=== PATIENT | female | born 1965 | race Caucasian/White ===

== ENCOUNTER 2018-02-19 14:35 | Emergency (ER) | payer BC, OTHER ==
[2018-02-19 14:41] VITALS: RESP 18
--- NOTE | 2018-02-19 15:37 | ED ---
General Adult HPI - General Chief complaint: Extremity Injury, Lower Stated complaint: bilateral ankle pain Time Seen by Provider: 02/19/18 14:48 Source: patient, RN notes reviewed, old records reviewed Mode of arrival: wheelchair Limitations: no limitations - History of Present Illness Initial comments: This is a 53-year-old female the ER for evaluation. To the ER for this patient presents ER for evaluation regarding ankle pain bilateral ankle pain. Patient has history of trauma, patient was running option of course today she tripped over an obstacle one of her foot got caught in a loop also some kind and the other foot landed on the ground. Bilateral tympanic, she is able to bear weight but currently is having lower extremity edema swelling. Patient took Motrin this morning mild improvement but no significant help - Related Data Home Medications Medication Instructions Recorded Confirmed Atorvastatin [Lipitor] 20 mg PO HS 04/07/16 04/10/16 Citalopram Hydrobromide 40 mg PO DAILY 04/07/16 04/10/16 [Citalopram HBr] Dapagliflozin Propanediol [Farxiga] 10 mg PO DAILY 04/07/16 04/10/16 LORazepam [Ativan] 1 mg PO DAILY 04/07/16 04/10/16 Levothyroxine Sodium [Synthroid] 137 mcg PO DAILY 04/07/16 04/10/16 Meloxicam 15 mg PO DAILY 04/07/16 04/10/16 Phentermine HCl [Adipex-P] 37.5 mg PO QAM 04/07/16 04/10/16 buPROPion HCL [Wellbutrin XL] 300 mg PO DAILY 04/07/16 04/10/16 Previous Rx's Medication Instructions Recorded Cyclobenzaprine [Flexeril] 10 mg PO TID #20 tablet 07/25/14 Acetaminophen with Codeine 1 tab PO Q4H PRN #20 tab 02/19/18 [Tylenol w/codeine #3] Allergies Allergy/AdvReac Type Severity Reaction Status Date / Time No Known Allergies Allergy Verified 02/19/18 14:38 Review of Systems ROS Statement: Those systems with pertinent positive or pertinent negative responses have been documented in the HPI. ROS Other: All systems not noted in ROS Statement are negative. Past Medical History Past Medical History: Diabetes Mellitus, Liver Disease, Thyroid Disorder Additional Past Medical History / Comment(s): elevated liver enzymes, neuropathy History of Any Multi-Drug Resistant Organisms: None Reported Past Surgical History: Appendectomy, Hysterectomy, Orthopedic Surgery Additional Past Surgical History / Comment(s): ovarian cyst; laparoscopies Past Anesthesia/Blood Transfusion Reactions: No Reported Reaction Past Psychological History: Depression Smoking Status: Never smoker Past Alcohol Use History: None Reported Past Drug Use History: None Reported - Past Family History Mother Family Medical History: No Reported History General Exam Limitations: no limitations General appearance: alert, in no apparent distress Head exam: Present: atraumatic, normocephalic, normal inspection Eye exam: Present: normal appearance, PERRL, EOMI. Absent: scleral icterus, conjunctival injection, periorbital swelling ENT exam: Present: normal exam, mucous membranes moist Neck exam: Present: normal inspection. Absent: tenderness, meningismus, lymphadenopathy Respiratory exam: Present: normal lung sounds bilaterally. Absent: respiratory distress, wheezes, rales, rhonchi, stridor Cardiovascular Exam: Present: regular rate, normal rhythm, normal heart sounds. Absent: systolic murmur, diastolic murmur, rubs, gallop, clicks GI/Abdominal exam: Present: soft, normal bowel sounds. Absent: distended, tenderness, guarding, rebound, rigid Extremities exam: Present: normal inspection, full ROM, normal capillary refill , other (Right ankle edema left ankle edema, right tibia tenderness). Absent: tenderness, pedal edema, joint swelling, calf tenderness Back exam: Present: normal inspection Neurological exam: Present: alert, oriented X3, CN II-XII intact Psychiatric exam: Present: normal affect, normal mood Skin exam: Present: warm, dry, intact, normal color. Absent: rash Course Vital Signs 02/19/18 14:38 Temperature 98.5 F Pulse Rate 93 Respiratory 18 Rate Blood Pressure 128/87 O2 Sat by Pulse 99 Oximetry Medical Decision Making - Medical Decision Making 33 female the ER status post trip and fall. Patient fell while going over optical course. Bilateral ankle pain right knee pain. X-rays negative for traumatic injury. Patient given an Aircast both ankles, Motrin Tylenol for pain ice tonight. Patient can be discharged home - Radiology Data Radiology results: report reviewed (X-ray bilateral ankles, bilateral tib-fib negative, right knee x-ray negative), image reviewed Disposition Clinical Impression: Right ankle sprain, Left ankle sprain, Fall Disposition: HOME SELF-CARE Condition: Good Instructions: Ankle Sprain (ED) Prescriptions: Acetaminophen with Codeine [Tylenol w/codeine #3] 1 tab PO Q4H PRN #20 tab PRN Reason: Pain Is patient prescribed a controlled substance at d/c from ED?: No Referrals: Cristhian Mcguire MD [Primary Care Provider] - 1-2 days
--- NOTE | 2018-02-19 16:06 | XR ---
EXAMINATION TYPE: XR ankle complete bilateral DATE OF EXAM: 02/19/2018 COMPARISON: NONE HISTORY: Pain and swelling TECHNIQUE: 6 views. 3 views each ankle. FINDINGS: There is an oblique nondisplaced fracture of the distal fibula of the right ankle. There is lateral soft tissue swelling. The left ankle appears intact. There is minimal soft tissue swelling o bobbi the lateral malleolus of the left ankle. There are bilateral plantar calcaneal spurs. IMPRESSION: Acute nondisplaced oblique fracture distal right fibula. Left ankle shows no evidence of fracture.
--- NOTE | 2018-02-19 16:07 | XR ---
EXAMINATION TYPE: XR tibia fibula bilateral DATE OF EXAM: 02/19/2018 COMPARISON: NONE HISTORY: Pain TECHNIQUE: 3 views each tibia and fibula. FINDINGS: There is nondisplaced oblique fracture distal shaft of the right fibula. The left tibia and fibula appear intact. The knee joints appear intact. IMPRESSION: Negative left tibia and fibula exam. Oblique nondisplaced fracture distal shaft of the right fibula.
[2018-02-19] MEDS ORDERED: HYDROcodone/APAP 5-325MG 1 EACH TAB PO STA ×2 (17:02→17:25)
[2018-02-19 17:18] VITALS: BP 171/99; PULSE 77; TEMP 98.2
== END 2018-02-19 17:35 | disposition home or self-care (01) ==
LOC: EC 14:35
DX: S93.401A Sprain of unspecified ligament of right ankle, initial encounter (principal); S93.402A Sprain of unspecified ligament of left ankle, initial encounter; E07.9 Disorder of thyroid, unspecified; F32.9 Major depressive disorder, single episode, unspecified; E11.40 Type 2 diabetes mellitus with diabetic neuropathy, unspecified; Z79.84 Long term (current) use of oral hypoglycemic drugs; Z79.899 Other long term (current) drug therapy; W01.0XXA Fall on same level from slipping, tripping and stumbling without subsequent striking against object, initial encounter; Y93.02 Activity, running
CPT/HCPCS: 99284

== ENCOUNTER → 2018-02-22 | Outpatient (CLI) | payer SELFPAY ==
[2018-02-22 13:07] LABS: Basophils # (A) 0.1 k/uL (0-0.2); Basophils % (A) 0 %; Eosinophils # (A) 0.3 k/uL (0-0.7); Eosinophils % (A) 3 %; HCT 46.5 % (34.0-46.0); HGB 16.2 gm/dL (11.4-16.0); Lymphocytes # (A) 2.1 k/uL (1.0-4.8); Lymphocytes % (A) 20 %; MCH 29.4 pg (25.0-35.0); MCHC 34.8 g/dL (31.0-37.0); MCV 84.7 fL (80.0-100.0); Mean Platelet Volume 8.8; Monocytes # (A) 0.4 k/uL (0-1.0); Monocytes % (A) 4 %; Neutrophils # (A) 7.7 k/uL (1.3-7.7); Neutrophils % (A) 72 %; Platelet Count 164 k/uL (150-450); RBC 5.49 m/uL (3.80-5.40); RDW 13.7 % (11.5-15.5); WBC 10.7 k/uL (3.8-10.6)
[2018-02-22 13:15] LABS: Potassium 4.1 mmol/L (3.5-5.1)
== END | disposition home or self-care (01) ==
LOC: LABPAT 12:06
PROVIDERS: ATTEND Orthopaedic Surgery
DX: Z01.818 Encounter for other preprocedural examination (principal); Z01.812 Encounter for preprocedural laboratory examination; S82.61XD Displaced fracture of lateral malleolus of right fibula, subsequent encounter for closed fracture with routine healing
CPT/HCPCS: 36415; 80051; 85025; 93005

== ENCOUNTER 2018-02-24 05:48 | Observation (INO) | payer OTHER ==
[2018-02-22 17:01] VITALS: BMI 35.5
--- NOTE | 2018-02-23 16:21 | HP ---
HISTORY AND PHYSICAL DATE OF SERVICE: Surgery scheduled for 02/24/2018. HISTORY OF PRESENT ILLNESS: Tremaine Argueta is a 53-year-old patient seen with a displaced right ankle lateral malleolus fracture. I recommended open reduction, internal fixation. Procedure, risks, complications, benefits, and recovery discussed, patient was agreeable. Consent was obtained. PAST MEDICAL HISTORY: Tmf-[id number] diabetes, hypothyroidism. PAST SURGICAL HISTORY: Left knee arthroscopy, appendectomy, hysterectomy. MEDICATIONS: Glucophage, levothyroxine, metformin. ALLERGIES: None reported. SOCIAL HISTORY: Patient denies tobacco. PHYSICAL EXAMINATION: Physical evaluation of the right ankle, there is some tenderness and swelling along the outer aspect of the ankle with some mild to moderate ecchymosis. Tenderness along the lateral malleolus. Limited range of motion with some discomfort. Achilles intact. Trent Jimmy negative. Distal neurovascular exam is intact. RADIOGRAPHS: Radiographs of the right ankle revealed a displaced lateral malleolus fracture. IMPRESSION: 1. Displaced right ankle lateral malleolus fracture. 2. Hypothyroidism. 3. Szx-lbtebwz-cvknmqwwk diabetes. PLAN: Open reduction, internal fixation, right ankle lateral malleolus. Surgery scheduled for 02/24/18. MMODL / IJN: [id number] /
[2018-02-24] MEDS ORDERED: HYDROmorphone 0.5 MG/0.5 ML SYRINGE IVP PRN ×2 (05:57→18:29)
[2018-02-24] MEDS ORDERED: ONDANSETRON 4 MG/2 ML VIAL IVP ONE (05:57)
[2018-02-24] MEDS ORDERED: DEXAMETHASONE SOD PHOSPHATE 10 MG/ML 1 ML VIAL IV ONE (05:57)
[2018-02-24] MEDS: LACTATED RINGERS 1,000 ML IV SCH ×2 (06:37→08:57)
[2018-02-24] MEDS ORDERED: LIDOCAINE 1% 20 ML VIAL (10MG/ML) FOR IV START INTRADERMA ONE (06:38)
[2018-02-24 06:40] LABS: Glucose,Whole Blood 273 mg/dL (75-99)
[2018-02-24] MEDS ORDERED: INSULIN ASPART 100 UNIT/ML 1 ML 10 ML VIAL SQ ONE ×3 (07:01→23:11)
[2018-02-24] MEDS ORDERED: PHENYLEPHRINE-0.9% NACL SYG 1 MG/10 ML SYRINGE ONE (07:28)
[2018-02-24] MEDS ORDERED: MORPHINE SULFATE (PF) 0.3 MG/0.3 ML SYR ONE (07:28)
[2018-02-24] MEDS ORDERED: fentaNYL (PF) 50 MCG/ML 2 ML AMP ONE (07:28)
[2018-02-24] MEDS ORDERED: PROPOFOL 10 MG/ML 20 ML VIAL IV ONE (07:28)
[2018-02-24] MEDS ORDERED: MIDAZOLAM 2 MG/2 ML VIAL ONE (07:28)
[2018-02-24] MEDS ORDERED: ceFAZolin 1,000 MG in SODIUM CHLORIDE 0.9% 1,000 ML IRRIGATION ONE (08:01)
[2018-02-24] MEDS ORDERED: HYDROcodone/APAP 5-325MG 1 EACH TAB PO PRN ×2 (08:34)
[2018-02-24] MEDS ORDERED: ONDANSETRON 4 MG/2 ML VIAL IVP PRN (08:34)
[2018-02-24] MEDS ORDERED: MORPHINE SULFATE 2 MG/ML SYRINGE IV PRN ×2 (08:34)
--- NOTE | 2018-02-24 08:41 | P.OP ---
Date of Procedure: 02/24/18 Preoperative Diagnosis: Displaced right ankle lateral malleolus fracture Postoperative Diagnosis: Displaced right ankle lateral malleolus fracture Procedure(s) Performed: Open reduction and internal fixation right ankle lateral malleolus Implants: Synthes 6 hole one third semitubular plate with 6 appropriate length 3.5 mm screws Anesthesia: spinal Surgeon: Mickey Aguilera Fishing Vessel Deckhand #1: Hesham Manuel Estimated Blood Loss (ml): 6 Pathology: none sent Condition: stable Disposition: PACU Indications for Procedure: 53-year-old patient seen with a displaced right ankle lateral malleolar fracture. I recommended open reduction internal fixation. I discussed the procedure, risks, complications and recovery. Patient was agreeable and consent was obtained. Operative Findings: see description of procedure Description of Procedure: The patient was taken to the operative suite. The patient received preoperative IV antibiotics. The patient underwent a spinal anesthetic by the department of anesthesia. A well-padded tourniquet was placed proximal right lower extremity. The right lower extremity was then prepped and draped in the normal sterile orthopedic fashion. The extremity was elevated and tourniquet insufflated to 300. A standard lateral incision was made over the area of the fracture/lateral malleolus. Dissection was taken down to the lateral malleolus and the fracture was easily identified. I evacuated the hematoma. I used periost elevation to define the fracture. I reduced the fracture and secured that with a bone reduction clamp. I chose a one third semitubular plate 6-hole appropriate contour to. I secured it to the lateral malleolus. I now made appropriate drill holes through the plate introduced appropriate length screws with all screws having appropriate good purchase. We now released the clamp. There was good alignment of fracture. We brought the C-arm to the operative field. I reviewed the entire construct under AP, lateral and oblique intraoperative imaging noting good alignment of the fracture and good position of the internal fixation. Spot films were obtained to document that. The wound was irrigated. The subcutaneous tissues were approximated with 2-0 Vicryl. The skin was approximated with skin yuni. Sterile dressings were applied. The tourniquet was released with immediate capillary refill of all digits noted. I now applied a modified bulky Hartmann splint while keeping the ankle in neutral position. The patient was awakened and transferred to a bed and then recovery stable condition. Babar GONZALES assisted procedure.
[2018-02-24 08:47] LABS: Glucose,Whole Blood 278 mg/dL (75-99)
[2018-02-24] MEDS ORDERED: NALOXONE 0.4 MG/ML 1 ML VIAL IV PRN (08:58)
[2018-02-24] MEDS ORDERED: PROMETHAZINE INJ 3.125 MG in SODIUM CHLORIDE 0.9% 50 ML IVPB PRN (08:58)
[2018-02-24] MEDS ORDERED: diphenhydrAMINE 50 MG/ML 1 ML VIAL IVP PRN (08:58)
[2018-02-24] MEDS ORDERED: NALBUPHINE 10 MG/ML VIAL (10ML MDV) IV PRN (08:58)
--- NOTE | 2018-02-24 09:35 | XR ---
EXAMINATION TYPE: XR ankle complete RT DATE OF EXAM: 02/24/2018 COMPARISON: NONE HISTORY: Intraoperative TECHNIQUE: 3 views are submitted FINDINGS: Postsurgical change appears in near anatomic alignment IMPRESSION: Postsurgical change
--- NOTE | 2018-02-24 09:45 | FL ---
EXAMINATION TYPE: FL guidance operating room DATE OF EXAM: 02/24/2018 HISTORY: Flouroscopy time 1 seconds of fluoroscopy provided. IMPRESSION: 1. Fluoroscopy time.
[2018-02-24] MEDS: ceFAZolin IN SWFI 2 GM/20 ML SYRINGE IVP SCH ×2 (13:58→23:29)
[2018-02-24 20:31] LABS: Glucose,Whole Blood 248 mg/dL (75-99)
[2018-02-25 01:38] VITALS: PULSE 62
[2018-02-25] MEDS: MORPHINE SULFATE 2 MG/ML SYRINGE IV PRN ×2 (03:34→07:19)
[2018-02-25] MEDS ORDERED: ceFAZolin IN SWFI 2 GM/20 ML SYRINGE IVP ONE (06:00)
[2018-02-25] MEDS ORDERED: LEVOTHYROXINE 137 MCG TAB PO SCH (06:30)
[2018-02-25 06:57] LABS: Glucose,Whole Blood 238 mg/dL (75-99)
[2018-02-25] MEDS ORDERED: ENOXAPARIN 40 MG/0.4 ML SYRINGE SQ SCH (07:00)
[2018-02-25] MEDS ORDERED: metFORMIN 500 MG TAB PO SCH (07:30)
[2018-02-25] MEDS: INSULIN ASPART 100 UNIT/ML 1 ML 10 ML VIAL SQ SCH ×2 (07:57→12:33)
[2018-02-25 07:59] VITALS: BP 117/80; RESP 14; TEMP 97.9
[2018-02-25 11:01] LABS: Glucose,Whole Blood 252 mg/dL (75-99)
--- NOTE | 2018-02-25 12:06 | P.PN ---
Subjective Progress Note Date: 02/25/18 Principal diagnosis: Status post ORIF right lateral ankle fracture Patient seen today resting in her hospital bed, she appears comfortable. She's had some increasing pain in the ankle, it has improved. She remains nonweightbearing. Her splints in good position and condition. She denies any shortness of breath or chest pain. Objective - Vital Signs Vital signs: Vital Signs Temp 97.9 F 02/25/18 07:58 Pulse 62 02/25/18 00:32 Resp 14 02/25/18 07:58 BP 117/80 02/25/18 07:58 Pulse Ox 98 02/25/18 07:58 Intake & Output 02/24/18 02/25/18 02/25/18 18:59 06:59 18:59 Intake Total 850 600 200 Output Total 1106 Balance -256 600 200 Weight 99.79 kg Intake: IV 750 Intake, IV Titration 100 Amount Lactated Ringers 1,000 ml 100 @ 20 mls/hr IV .Q24H MARYURI Rx#:[id number] Oral 0 600 200 Output: Urine 1000 Emesis 100 Estimated Blood Loss 6 Other: Voiding Method Bedpan # Voids 1 1 - Exam Right lower extremity: Splint is in good position and condition. She can wiggle the toes, her sensation to light touch proximal distal to this point are intact. Toes are warm to touch. - Labs Labs: Abnormal Lab Results - Last 24 Hours (Table) 02/24/18 02/25/18 02/25/18 Range/Units 20:27 06:55 10:52 POC Glucose (mg/dL) 248 H 238 H 252 H (75-99) mg/dL Assessment and Plan Plan: Assessment: 1. Postop day 1 status post open reduction internal fixation left lateral ankle fracture Plan: Pain control, we'll discharge home on oral medication GI and DVT prophylaxis, aspirin 325 mg once a day for 2-3 weeks Nonweightbearing right lower extremity, utilize crutches or walker Icing and elevating techniques were discussed Proper cast instructions were discussed Plan for discharge home today Time with Patient: Less than 30
--- NOTE | 2018-02-25 12:13 | P.DS ---
Providers Date of admission: 02/24/18 17:18 Expected date of discharge: 02/25/18 Attending physician: Mickey Aguilera Primary care physician: Flako Mcguire [facility] Course: Date of admission: 02/24/2018 Date of discharge: 02/25/2018 Admission diagnosis: Status post ORIF right lateral ankle fracture Discharge diagnosis: Same Attending physician: Dr. Aguilera Surgical procedures: Open reduction internal fixation right lateral ankle fracture Brief history: Patient is a 53-year-old female who was evaluated in the outpatient setting by Dr. Aguilera with regards to a right ankle injury. It was determined that surgical intervention would be needed. She was scheduled for surgery on 02/24/2018. Hospital course: Details of patient's surgery can be found in operative report. Patient tolerated the procedure well and was subsequently transported to orthopedic floor. Patient's orthopeidc and medical care was provided daily. Patient had daily laboratory tests performed for evaluation of overall blood counts. Patient had daily physical therapy to include strengthening range of motion as well as education with walker ambulation. Patient was treated with Lovenox for their postoperative DVT prophylaxis during their inpatient stay. Patient was noted to have a relatively uneventful postoperative course. Patient reported satisfactory pain control with oral pain medications by postoperative day 0. Patient showed satisfactory progress with physical therapy. Patient moved steadily through the program and had no difficulty meeting the goals by postoperative day 1. Given patient's otherwise satisfactory course and having met physical therapy goals, plan is to discharge patient home on postoperative day 1. Discharge condition/disposition: Patient will be discharged home in stable condition. Discharge medications: Instructions are given on resumption of patient's normal daily medications per primary care recommendation, in addition patient will be prescribed [place] 5 mg/325 mg, aspirin 325 mg. Discharge instructions: 1. Wound care and infection precautions, keep incision dry and covered while showering, no lotions, creams, moisturizers. No soaking, tubs, pools, hottubs. Do not scrub over the incision. 2. Nonweightbearing right lower extremity 3. Ice and elevate when necessary. Do not exceed 20 minutes per hour with ice pack. 4. Utilize compression sleeve until seen at first follow up appointment. 5. Pain meds and anticoagulants per prescription. 6. Pain medication has potential to cause constipation. Increase oral fluid and fiber intake. Contact primary care provider if you have not had a bowel movement within 48 hours after discharge 7. Follow up in office at 2 weeks postop with Babar Manuel PA-C 8. Follow up with your primary care doctor 7-10 days after discharge. 9. Contact [facility] with any questions, . Procedures: Open reduction internal fixation right lateral ankle fracture Patient Condition at Discharge: Good Plan - Discharge Summary Discharge Rx Participant: No New Discharge Prescriptions: New Aspirin 325 mg PO DAILY #30 tab Hydrocodone/Acetaminophen [[place] 5-325] 1 - 2 each PO Q6HR PRN #56 tab PRN Reason: Pain No Action Levothyroxine Sodium [Synthroid] 137 mcg PO DAILY metFORMIN HCL [Glucophage] 500 mg PO DAILY glyBURIDE [Diabeta] 1 tab PO DAILY Discharge Medication List Levothyroxine Sodium [Synthroid] 137 mcg PO DAILY 04/07/16 [History] metFORMIN HCL [Glucophage] 500 mg PO DAILY 02/22/18 [History] glyBURIDE [Diabeta] 1 tab PO DAILY 02/24/18 [History] Aspirin 325 mg PO DAILY #30 tab 02/25/18 [Rx] Hydrocodone/Acetaminophen [[place] 5-325] 1 - 2 each PO Q6HR PRN #56 tab 02/25/18 [Rx] Follow up Appointment(s)/Referral(s): Hesham Manuel PAC [PHYSICIAN PADDLE DYEING MACHINE OPERATOR] - 2 Weeks Discharge Disposition: HOME SELF-CARE
--- NOTE | 2018-02-25 12:57 | P.PN ---
Progress Note - Text Date: 02/25/2018 Time: 07:13 The patient is status post, ORIF right ankle Vital signs stable VAS:[0-10] Patient has no complaints of pain. The patient incurred some minimal itching yesterday, this itching is now subsiding. Pain meds to be managed by service.
[2018-02-25 13:27] LABS: Hemoglobin A1C 10.3 % (4.0-6.0)
== END 2018-02-25 14:33 | disposition home or self-care (01) ==
LOC: OR 05:48 → 3SUR 08:37 → OR 17:19
PROVIDERS: ADMIT Orthopaedic Surgery; ATTEND Orthopaedic Surgery
DX: S82.61XA Displaced fracture of lateral malleolus of right fibula, initial encounter for closed fracture (principal); E11.42 Type 2 diabetes mellitus with diabetic polyneuropathy; G47.33 Obstructive sleep apnea (adult) (pediatric); E03.9 Hypothyroidism, unspecified; L29.9 Pruritus, unspecified; Z79.84 Long term (current) use of oral hypoglycemic drugs; Z79.890 Hormone replacement therapy
CPT/HCPCS: 97161; 83036; 73610; 27792; G0378 ×2; C1713; J2250; J1200; J1100; J2405; J1650; J2274; J3010; J2270; J2370; J2704; J1170; J0690

== ENCOUNTER → 2018-05-30 | Outpatient (CLI) | payer OTHER ==
--- NOTE | 2018-05-31 13:58 | MM ---
Reason for exam: screening (asymptomatic). History: Patient is postmenopausal. Physical Findings: A clinical breast exam by your physician is recommended on an annual basis and results should be correlated with mammographic findings. MG Screening Mammo w CAD Bilateral CC and MLO view(s) were taken. No prior studies available for comparison. Asymmetric breast tissue in right MLO and ML view upper position zone A-B 1.0cm, 6-7cm from nipple. ASSESSMENT: Incomplete: need additional imaging evaluation, BI-RAD 0 RECOMMENDATION: Special view mammogram of the right breast. If lesion persists on supplemental views, image directed ultrasound is recommended. [facility] will attempt to contact patient to return for supplemental views and ultrasound if indicated.
== END | disposition home or self-care (01) ==
LOC: RADMAMWWP 11:29
PROVIDERS: ATTEND Family Medicine
DX: Z12.31 Encounter for screening mammogram for malignant neoplasm of breast (principal)
CPT/HCPCS: 77067

== ENCOUNTER → 2018-06-08 | Outpatient (CLI) | payer OTHER ==
--- NOTE | 2018-06-08 14:33 | MM ---
Reason for exam: additional evaluation requested from abnormal screening. Last mammogram was performed less than 1 month ago. History: Patient is postmenopausal. Physical Findings: Nurse did not find any significant physical abnormalities on exam. MG Work Up Mamm w CAD RT Spot compression CC, spot compression MLO, and ML view(s) were taken of the right breast. Prior study comparison: May 30, 2018, bilateral MG screening mammo w CAD. The breast tissue is heterogeneously dense. This may lower the sensitivity of mammography. There is no discrete abnormality. The questioned superior asymmetric density does not persist. These results were verbally communicated with the patient and result sheet given to the patient on 06/08/18. ASSESSMENT: Negative, BI-RAD 1 RECOMMENDATION: Return to routine screening mammogram schedule for both breasts.
== END | disposition home or self-care (01) ==
LOC: RADMAMWWP 13:40
PROVIDERS: ATTEND Family Medicine
DX: R92.8 Other abnormal and inconclusive findings on diagnostic imaging of breast (principal)
CPT/HCPCS: 77065

== ENCOUNTER → 2018-07-08 | Outpatient (CLI) | payer OTHER ==
[2018-07-08 12:41] LABS: Basophils % (A) 1 %; Eosinophils # (A) 0.2 k/uL (0-0.7); Eosinophils % (A) 2 %; HCT 46.5 % (34.0-46.0); HGB 15.5 gm/dL (11.4-16.0); Lymphocytes # (A) 2.5 k/uL (1.0-4.8); Lymphocytes % (A) 32 %; MCH 28.7 pg (25.0-35.0); MCHC 33.3 g/dL (31.0-37.0); MCV 86.2 fL (80.0-100.0); Mean Platelet Volume 8.7; Monocytes # (A) 0.3 k/uL (0-1.0); Monocytes % (A) 4 %; Neutrophils # (A) 4.8 k/uL (1.3-7.7); Neutrophils % (A) 60 %; Platelet Count 194 k/uL (150-450); RBC 5.39 m/uL (3.80-5.40); RDW 13.2 % (11.5-15.5)
[2018-07-08 18:41] LABS: Albumin 4.7 g/dL (3.80-4.90); Albumin/Globulin Ratio 2.61 (1.20-2.10); Anion Gap 7.4 mmol/L (4.00-12.00); Calcium 9.4 mg/dL (8.7-10.3); Carbon Dioxide 26.6 mmol/L (21.6-31.8); Globulin 1.8 g/dL (2.1-3.7); LDL Cholesterol,Calculated 74.8 mg/dL (0.0-131.0); Potassium 4.2 mmol/L (3.5-5.5); Total Bilirubin 0.5 mg/dL (0.2-1.2); Total Protein 6.5 g/dL (6.2-8.2); VLDL Calculation 21.2 mg/dL (5.00-40.00)
[2018-07-08 18:48] LABS: T4, Free (Free Thyroxine) 1.2 ng/dL (0.80-1.80)
[2018-07-08 22:44] LABS: Hemoglobin A1C 10.7 % (4.0-6.0)
== END | disposition home or self-care (01) ==
LOC: LABWHC1 11:27
PROVIDERS: ATTEND Family Medicine
DX: E03.9 Hypothyroidism, unspecified (principal); E11.65 Type 2 diabetes mellitus with hyperglycemia
CPT/HCPCS: 36415; 80053; 80061; 82043; 82570; 83036; 84439; 84443; 84481; 85025

== ENCOUNTER → 2019-03-22 | Outpatient (CLI) | payer OTHER ==
[2019-03-22 16:29] LABS: African American GFR (CKD) 96.2 (60.0-200.0); Albumin 4.5 g/dL (3.80-4.90); Albumin/Globulin Ratio 2.5 (1.60-3.17); Anion Gap 10.1 mmol/L (4.00-12.00); Calcium 9.8 mg/dL (8.7-10.3); Carbon Dioxide 26.9 mmol/L (21.6-31.8); Globulin 1.8 g/dL (1.6-3.3); LDL Cholesterol,Calculated 111.6 mg/dL (0.0-131.0); Potassium 4.7 mmol/L (3.5-5.5); Total Bilirubin 0.7 mg/dL (0.2-1.2); Total Protein 6.3 g/dL (6.2-8.2); VLDL Calculation 31.4 mg/dL (5.00-40.00)
[2019-03-22 18:41] LABS: Hemoglobin A1C 11.3 % (4.0-6.0)
== END | disposition home or self-care (01) ==
LOC: LABWHC1 09:19
PROVIDERS: ATTEND Family Medicine
DX: E11.65 Type 2 diabetes mellitus with hyperglycemia (principal)
CPT/HCPCS: 36415; 80053; 80061; 83036

== ENCOUNTER → 2019-05-31 | Outpatient (CLI) | payer OTHER ==
--- NOTE | 2019-06-01 13:42 | MM ---
Reason for exam: screening (asymptomatic). Last mammogram was performed 1 year ago. History: Patient is postmenopausal. Physical Findings: A clinical breast exam by your physician is recommended on an annual basis and results should be correlated with mammographic findings. MG Screening Mammo w CAD Bilateral CC and MLO view(s) were taken. Prior study comparison: June 08, 2018, right breast MG work up mamm w CAD RT. May 30, 2018, bilateral MG screening mammo w CAD. The breast tissue is heterogeneously dense. This may lower the sensitivity of mammography. Benign appearing bilateral calcifications. No suspicious abnormality. No significant changes when compared with prior studies. ASSESSMENT: Benign, BI-RAD 2 RECOMMENDATION: Routine screening mammogram of both breasts in 1 year.
== END | disposition home or self-care (01) ==
LOC: RADMAMWWP 10:36
PROVIDERS: ATTEND Family Medicine
DX: Z12.31 Encounter for screening mammogram for malignant neoplasm of breast (principal)
CPT/HCPCS: 77067

== ENCOUNTER → 2019-09-22 | Outpatient (CLI) | payer OTHER ==
[2019-09-22 09:17] LABS: Basophils # (A) 0.1 k/uL (0-0.2); Basophils % (A) 1 %; Eosinophils # (A) 0.1 k/uL (0-0.7); Eosinophils % (A) 1 %; HCT 46.7 % (34.0-46.0); HGB 16.1 gm/dL (11.4-16.0); Lymphocytes # (A) 2.9 k/uL (1.0-4.8); Lymphocytes % (A) 27 %; MCH 30.2 pg (25.0-35.0); MCHC 34.5 g/dL (31.0-37.0); MCV 87.6 fL (80.0-100.0); Mean Platelet Volume 9.5; Monocytes # (A) 0.5 k/uL (0-1.0); Monocytes % (A) 5 %; Neutrophils # (A) 6.8 k/uL (1.3-7.7); Neutrophils % (A) 65 %; Platelet Count 217 k/uL (150-450); RBC 5.33 m/uL (3.80-5.40); RDW 13.8 % (11.5-15.5); WBC 10.5 k/uL (3.8-10.6)
[2019-09-22 18:16] LABS: African American GFR (CKD) 83.4 (60.0-200.0); Albumin 4.9 g/dL (3.80-4.90); Albumin/Globulin Ratio 2.33 (1.60-3.17); Anion Gap 10.9 mmol/L (4.00-12.00); BUN/Creat Ratio 13.33 Ratio (12.00-20.00); Carbon Dioxide 26.1 mmol/L (21.6-31.8); Chol/HDL Ratio 3.96; Globulin 2.1 g/dL (1.6-3.3); LDL Cholesterol,Calculated 130.4 mg/dL (0.0-131.0); Potassium 4.6 mmol/L (3.5-5.5); Total Bilirubin 0.7 mg/dL (0.2-1.2); VLDL Calculation 32.6 mg/dL (5.00-40.00)
[2019-09-22 19:16] LABS: Urine Creatinine 208.3 mg/dL
[2019-09-22 19:33] LABS: Hemoglobin A1C 8.1 % (4.0-6.0)
== END | disposition home or self-care (01) ==
LOC: LABWHC1 08:22
PROVIDERS: ATTEND Family Medicine
DX: E11.65 Type 2 diabetes mellitus with hyperglycemia (principal); E03.9 Hypothyroidism, unspecified
CPT/HCPCS: 36415; 80053; 80061; 82043; 82570; 83036; 84439; 84443; 84481; 85025

== ENCOUNTER → 2020-04-23 | Outpatient (CLI) | payer OTHER ==
[2020-04-23 17:19] LABS: Hemoglobin A1C 9.4 % (4.0-6.0)
[2020-04-23 18:19] LABS: African American GFR (CKD) 95.5 (60.0-200.0); Albumin 4.6 g/dL (3.80-4.90); Anion Gap 11.5 mmol/L (4.00-12.00); BUN/Creat Ratio 13.75 Ratio (12.00-20.00); Calcium 9.7 mg/dL (8.7-10.3); Carbon Dioxide 25.5 mmol/L (21.6-31.8); Chol/HDL Ratio 3.95; Globulin 2.3 g/dL (1.6-3.3); LDL Cholesterol,Calculated 93.2 mg/dL (0.0-131.0); Non-African American GFR(CKD) 82.4 (60.0-200.0); Potassium 4.6 mmol/L (3.5-5.5); Total Bilirubin 0.6 mg/dL (0.2-1.2); Total Protein 6.9 g/dL (6.2-8.2); VLDL Calculation 21.8 mg/dL (5.00-40.00)
== END | disposition home or self-care (01) ==
LOC: LABWHC1 08:56
PROVIDERS: ATTEND Family Medicine
DX: E11.65 Type 2 diabetes mellitus with hyperglycemia (principal)
CPT/HCPCS: 36415; 80053; 80061; 83036

== ENCOUNTER → 2020-10-25 | Outpatient (CLI) | payer OTHER ==
[2020-10-25 15:04] LABS: Basophils # (A) 0.05 X 10*3/uL (0.00-0.10); Basophils % (A) 0.7 %; Eosinophils # (A) 0.11 X 10*3/uL (0.04-0.35); Eosinophils % (A) 1.5 %; HGB 14.8 g/dL (12.0-15.0); Lymphocytes # (A) 2.27 X 10*3/uL (0.90-5.00); MCH 28.8 pg (27.0-32.0); MCHC 33.6 g/dL (32.0-37.0); MCV 85.8 fL (80.0-97.0); Mean Platelet Volume 11.9 fL (9.5-12.2); Monocytes # (A) 0.41 X 10*3/uL (0.20-1.00); Monocytes % (A) 5.6 %; Neutrophils # (A) 4.45 X 10*3/uL (1.80-7.70); Neutrophils % (A) 60.8 %; Platelet Count 204 X 10*3/uL (140-440); RBC 5.13 X 10*6/uL (4.10-5.20); RDW 12.9 % (11.5-14.5); WBC 7.32 X 10*3/uL (4.50-10.00)
[2020-10-25 15:26] LABS: African American GFR (CKD) 95.5 (60.0-200.0); Albumin 4.8 g/dL (3.80-4.90); Albumin/Globulin Ratio 2.53 (1.60-3.17); Anion Gap 6.7 mmol/L (4.00-12.00); BUN/Creat Ratio 12.5 Ratio (12.00-20.00); Calcium 9.3 mg/dL (8.7-10.3); Carbon Dioxide 25.3 mmol/L (21.6-31.8); Chol/HDL Ratio 3.22; Globulin 1.9 g/dL (1.6-3.3); LDL Cholesterol,Calculated 85.6 mg/dL (0.0-131.0); Non-African American GFR(CKD) 82.4 (60.0-200.0); Potassium 4.1 mmol/L (3.5-5.5); Total Bilirubin 0.6 mg/dL (0.3-1.2); Total Protein 6.7 g/dL (6.2-8.2); VLDL Calculation 23.4 mg/dL (5.00-40.00)
[2020-10-25 15:34] LABS: T4, Free (Free Thyroxine) 1.1 ng/dL (0.80-1.80)
[2020-10-25 17:53] LABS: Hemoglobin A1C 8.4 % (4.0-6.0)
[2020-10-25 19:14] LABS: Urine Creatinine 115.2 mg/dL
== END | disposition home or self-care (01) ==
LOC: LABWHC1 09:31
PROVIDERS: ATTEND Family Medicine
DX: E11.65 Type 2 diabetes mellitus with hyperglycemia (principal); E03.9 Hypothyroidism, unspecified
CPT/HCPCS: 36415; 80053; 80061; 82043; 82570; 83036; 84439; 84443; 85025

== ENCOUNTER → 2022-05-18 | Outpatient (CLI) | payer BC ==
--- NOTE | 2022-05-20 15:10 | MM ---
Reason for Exam: Screening (asymptomatic). Last mammogram was performed 3 year(s) and 0 month(s) ago. Patient History: Menarche at age 14. First Full-Term at age 15. Left ovary removed at age 28. Right ovary removed at age 28. Hysterectomy at age 28. Postmenopausal. Patient has history of breast feeding. Risk Values: Elle 5 year model risk: 0.9%. NCI Lifetime model risk: 5.1%. Prior Study Comparison: 05/30/2018 Bilateral Screening Mammogram, [facility]. 06/08/2018 Right Diagnostic Mammogram, [facility]. 05/31/2019 Bilateral Screening Mammogram, [facility]. Tissue Density: The breast tissue is heterogeneously dense. This may lower the sensitivity of mammography. Findings: Analyzed By CAD. There is no suspicious group of microcalcifications or new suspicious mass in either breast. Overall Assessment: Negative, BI-RAD 1 Management: Screening Mammogram of both breasts in 1 year. A clinical breast exam by your physician is recommended on an annual basis and results should be correlated with mammographic findings. Electronically signed and approved by: Vinicio Russell DO
== END | disposition home or self-care (01) ==
LOC: RADMAMWWP 14:30
PROVIDERS: ATTEND Obstetrics & Gynecology
DX: Z12.31 Encounter for screening mammogram for malignant neoplasm of breast (principal); Z78.0 Asymptomatic menopausal state
CPT/HCPCS: 77067

== ENCOUNTER → 2022-05-18 | Outpatient (CLI) | payer BC ==
[2022-05-18 18:17] LABS: Basophils # (A) 0.04 X 10*3/uL (0.00-0.10); Basophils % (A) 0.5 %; Eosinophils # (A) 0.13 X 10*3/uL (0.04-0.35); Eosinophils % (A) 1.7 %; HCT 42.6 % (37.2-46.3); HGB 14.6 g/dL (12.0-15.0); Immature Grans, Automated 0.4 %; Lymphocytes # (A) 2.08 X 10*3/uL (0.90-5.00); Lymphocytes % (A) 27.9 %; MCH 29.4 pg (27.0-32.0); MCHC 34.3 g/dL (32.0-37.0); MCV 85.7 fL (80.0-97.0); Mean Platelet Volume 11.5 fL (9.5-12.2); Monocytes # (A) 0.49 X 10*3/uL (0.20-1.00); Monocytes % (A) 6.6 %; NRBC Per 100 WBC 0 /100 WBCS (0.0-0.0); Neutrophils # (A) 4.68 X 10*3/uL (1.80-7.70); Neutrophils % (A) 62.9 %; Platelet Count 209 X 10*3/uL (140-440); RBC 4.97 X 10*6/uL (4.10-5.20); RDW 12.8 % (11.5-14.5); WBC 7.45 X 10*3/uL (4.50-10.00)
[2022-05-18 19:00] LABS: ALT 30 U/L (8-44); AST 19 U/L (13-35); African American GFR (CKD) 115.8 (60.0-200.0); Albumin 4.9 g/dL (3.8-4.9); Albumin/Globulin Ratio 2.37 (1.60-3.17); Alkaline Phosphatase 68 U/L (41-126); BUN/Creat Ratio 17.38 Ratio (12.00-20.00); Blood Urea Nitrogen 10.6 mg/dL (9.0-27.0); Calcium 10.2 mg/dL (8.7-10.3); Carbon Dioxide 22.2 mmol/L (20.0-27.5); Chloride 101 mmol/L (96-109); Chol/HDL Ratio 3.63 Ratio; Globulin 2.1 g/dL (1.6-3.3); Glucose 136 mg/dL (70-110); LDL Cholesterol,Calculated 98.7 mg/dL (0.0-131.0); Non-African American GFR(CKD) 99.9 (60.0-200.0); Sodium 138 mmol/L (135-145)
[2022-05-19] LABS: Microalbumin Creatinine Ratio <30 mg/g Creat (0-30)
== END | disposition home or self-care (01) ==
LOC: LABWHC1 12:10
PROVIDERS: ATTEND Family Medicine
DX: E11.65 Type 2 diabetes mellitus with hyperglycemia (principal)
CPT/HCPCS: 36415; 80053; 80061; 82043; 82570; 84439; 84443; 84481; 85025